=== PATIENT | female | born 1995 | race Caucasian/White ===

== ENCOUNTER 2018-06-23 10:37 | Emergency (ER) | payer BC ==
[~2018-06-23] VITALS: Ht 177.8 cm; Wt 85.0 kg
[2018-06-23 10:41] VITALS: TEMP 98.4
[2018-06-23] MEDS ORDERED: IMITREX 25MG TA25 MG PO (10:47)
[2018-06-23] MEDS ORDERED: PROZAC 10MG10 MG PO (10:47)
[2018-06-23] MEDS ORDERED: LAMICTAL150 MG PO (10:47)
[2018-06-23 11:25] LABS: BASO # 0.1 (0.0-0.2); BASO % 1.4 % (0.0-2.0); EOS # 0.3 (0.0-0.7); EOS % 4.7 % (0-4.0); GRAN # 3.3 (1.4-6.5); GRAN % 51.9 % (42.2-75.2); HEMATOCRIT 44.8 % (37.0-47.0); HEMOGLOBIN 14.8 g/dl (12.5-16.0); LYMPH # 2.1 (1.2-3.4); LYMPH % 32.9 % (20.0-51.0); MEAN CELL VOLUME 91 fl (80.0-100.0); MEAN CORPUSCULAR HEMOGLOBIN 30 pg (27.0-31.0); MEAN CORPUSCULAR HGB CONC 33 g/dl (33.0-37.0); MEAN PLATELET VOLUME 10.9 fl (7.4-10.4); MONO # 0.6 (0.1-0.6); MONO % 8.9 % (1.7-9.3); PLATELET COUNT 221 K/mm3 (130-400); RED BLOOD COUNT 4.94 M/mm3 (4.10-5.30)
[2018-06-23 11:34] LABS: ALBUMIN 4.3 gm/dL (3.5-5.0); BILIRUBIN,TOTAL 0.5 mg/dL (0.0-1.0); CALCIUM 9.8 mg/dL (8.4-10.2); CREATININE, serum 1.13 mg/dL (0.52-1.25); POTASSIUM 4.5 mmol/L (3.4-5.0); TOTAL PROTEIN 7.5 gm/dL (6.4-8.2)
[2018-06-23] MEDS ORDERED: FIORINAL 325 MG1 CAP PO (12:20)
[2018-06-23] MEDS ORDERED: AMOXICILLIN 8751 TAB PO (12:20)
[2018-06-23 13:05] VITALS: BP 122/66; PULSE 86
== END 2018-06-23 13:06 | disposition home or self-care (01) ==
LOC: COL.ER 10:37
PROVIDERS: Physician Assistant
DX: T39.8X5A Adverse effect of other nonopioid analgesics and antipyretics, not elsewhere classified, initial encounter (principal); R51 Headache; F31.9 Bipolar disorder, unspecified; F41.9 Anxiety disorder, unspecified
CPT/HCPCS: J1200; J1885; J2550; J7030